=== PATIENT | female | born 1995 ===

== ENCOUNTER → 2019-06-13 15:23 | Observation (INO) ==
[~2019-06-13 15:23] MED LIST: Diphenoxylate/Atropine 1 TAB TABLET PO ONE
== END | disposition home or self-care (01) ==
LOC: 1NENULAB
PROVIDERS: ADMIT Advanced Practice Midwife; ATTEND Advanced Practice Midwife

== ENCOUNTER 2019-07-03 04:00 | Inpatient (IN) ==
[2019-07-03] MEDS ORDERED: Ondansetron 4 MG/2 ML VIAL IVP PRN (04:13)
[2019-07-03] MEDS ORDERED: *HR* FentaNYL (PF) 100 MCG/2 ML VIAL IVP PRN (04:13)
[2019-07-03] MEDS ORDERED: Lidocaine 1% 20 ML MDV INFILT PRN (04:13)
[2019-07-03] MEDS ORDERED: Metoclopramide 10 MG/2 ML VIAL IVP PRN (04:13)
[2019-07-03] MEDS ORDERED: Famotidine 20 MG/2 ML VIAL IVP PRN (04:13)
[2019-07-03] MEDS ORDERED: Naloxone 0.4 MG/ML INJ IVP PRN (04:13)
[2019-07-03] MEDS ORDERED: Ringers Solution, Lactated 1,000 ML IVC SCH (04:15)
[2019-07-03] MEDS ORDERED: Oxytocin 20 units/ LR 1000 mL 20 UNIT/1,000 ML BAG IVC SCH ×2 (04:15→15:16)
[2019-07-03 04:48] LABS: Basophils % 0.4 %; Eosinophils % 0.5 %; Hematocrit 30.8 % (35.3-44.9); Hemoglobin 9.5 g/dL (11.5-15.4); Immature Granulocytes % 1.7 % (0-4); Lymphocytes # 1.7 K/mcL (0.6-4.6); Lymphocytes % 22.4 %; Mean Corpuscular HGB Conc 30.8 g/dL (31.6-35.5); Mean Corpuscular Hemoglobin 26.8 pg (28.0-33.3); Mean Platelet Volume 10.7 fL (9.4-12.4); Monocytes # 0.6 K/mcL (0.0-1.3); Monocytes % 7.9 %; Neutrophils # 5.1 K/mcL (1.6-8.9); Platelet Count 228 K/mcL (140-400); Red Blood Count 3.54 M/mcL (3.82-4.97); Red Cell Distribution Width 14.1 % (11.5-14.5); Segmented Neutrophils % 67.1 %; White Blood Count 7.6 K/mcL (4.3-11.1)
[2019-07-03 04:58] LABS: Amphetamine Screen,Urine Negative ng/mL (Cutoff=1000); Barbiturate Screen,Urine Negative ng/mL (Cutoff=200); Benzodiazepines Screen,Urine Negative ng/mL (Cutoff=200); Cannabinoid Screen,Urine Negative ng/mL (Cutoff = 50); Cocaine Screen,Urine Negative ng/mL (Cutoff= 300); Opiate Screen,Urine Negative ng/mL (Cutoff=300); Phencyclidine Screen,Urine Negative ng/mL (Cutoff=25)
[2019-07-03] MEDS ORDERED: EPHEDrine 50 MG/ML VIAL IVP PRN (07:51)
[2019-07-03] MEDS ORDERED: Epidural Premix (fent/bupiv) 110 ML EP ONE (07:55)
[2019-07-03] MEDS ORDERED: Epidural Premix (fent/bupiv) 110 ML EP SCH (08:00)
[2019-07-03] MEDS ORDERED: Ringers Solution, Lactated 1,000 ML ONE (10:15)
[2019-07-03] MEDS ORDERED: *HR* FentaNYL (PF) 100 MCG/2 ML VIAL ONE (11:30)
[2019-07-03] MEDS ORDERED: Bupivacaine-MPF 0.25% 10 ML VIAL ONE (11:31)
[2019-07-03] MEDS ORDERED: *HR* HYDROcodone/Acet 5/325 mg TABLET PO PRN (15:16)
[2019-07-03] MEDS ORDERED: Benzocaine/Menthol 56 GM AEROSOL SPRAY TP PRN (15:16)
[2019-07-03] MEDS ORDERED: Lanolin 7 G OINT...G. TP PRN (15:16)
[2019-07-03] MEDS ORDERED: Oxytocin 20 units/ LR 1000 mL 20 UNIT/1,000 ML BAG IVC ONE (15:16)
[2019-07-03] MEDS ORDERED: Acetaminophen 325 MG TABLET PO PRN (15:16)
[2019-07-03] MEDS: Ibuprofen 600 MG TABLET PO PRN (20:39)
[2019-07-04 06:48] LABS: Basophils % 0.4 %; Eosinophils % 0.3 %; Hematocrit 28.3 % (35.3-44.9); Hemoglobin 8.6 g/dL (11.5-15.4); Lymphocytes # 2.1 K/mcL (0.6-4.6); Lymphocytes % 20.5 %; Mean Corpuscular HGB Conc 30.4 g/dL (31.6-35.5); Mean Corpuscular Hemoglobin 26.7 pg (28.0-33.3); Mean Corpuscular Volume 87.9 fL (83.0-100.0); Mean Platelet Volume 10.6 fL (9.4-12.4); Monocytes # 0.9 K/mcL (0.0-1.3); Monocytes % 8.4 %; Platelet Count 161 K/mcL (140-400); Red Blood Count 3.22 M/mcL (3.82-4.97); Red Cell Distribution Width 14.6 % (11.5-14.5); Segmented Neutrophils % 68.4 %; White Blood Count 10.3 K/mcL (4.3-11.1)
[2019-07-04 07:38] VITALS: BP 115/76
[2019-07-04] MEDS: Ibuprofen 600 MG TABLET PO PRN (08:01)
[2019-07-04] MEDS ORDERED: Prenatal Vit/FA 1 EACH TABLET PO SCH (09:00)
== END 2019-07-04 13:25 | disposition home or self-care (01) | DRG 807 ==
LOC: 1NENULAB 04:10 → 1NENUOBS 14:58
PROVIDERS: ADMIT Obstetrics & Gynecology; ATTEND Obstetrics & Gynecology